=== PATIENT | female | born 1970 | race Caucasian/White ===

== ENCOUNTER 2017-06-12 16:10 | Emergency (ER) | payer SELFPAY ==
[~2017-06-12] VITALS: Ht 154.9 cm; Wt 63.5 kg
[~2017-06-12 16:10] MED LIST: AMOXICILLIN500 MG PO; CIPRO500 MG OR; DARVOCET N-100100 - OR; FLAGYL500 MG OR; LORTAB 10 OR; LORTAB 5 OR; NO HOME MEDS; PREVACID30 M2 OR; PROTONIX40 MG OR; REGLAN10 MG OR; TRAMADOL HCL50 MG OR
[2017-06-12] MEDS ORDERED: AMOXICILLIN500 MG PO (16:51)
[2017-06-12 16:55] VITALS: BP 123/82
== END 2017-06-12 16:55 | disposition home or self-care (01) | DRG 816 ==
LOC: ED 16:10
DX: I88.9 Nonspecific lymphadenitis, unspecified (principal); F17.210 Nicotine dependence, cigarettes, uncomplicated

== ENCOUNTER 2019-03-23 17:56 | Emergency (ER) | payer SELFPAY ==
[~2019-03-23] VITALS: Ht 154.9 cm; Wt 65.0 kg
[2019-03-23 19:00] VITALS: BP 138/86
== END 2019-03-23 19:00 | disposition home or self-care (01) | DRG 563 ==
LOC: ED 17:56
DX: S39.012A Strain of muscle, fascia and tendon of lower back, initial encounter (principal); Y04.2XXA Assault by strike against or bumped into by another person, initial encounter; Y92.009 Unspecified place in unspecified non-institutional (private) residence as the place of occurrence of the external cause

== ENCOUNTER 2019-09-07 03:11 | Emergency (ER) | payer OTHER ==
[~2019-09-07] VITALS: Ht 154.9 cm; Wt 60.0 kg
[2019-09-07] MEDS ORDERED: AMOXICILLIN500 MG PO (03:41)
[2019-09-07] MEDS ORDERED: ULTRAM50 M1 PO (03:41)
[2019-09-07 03:45] VITALS: BP 113/68
== END 2019-09-07 04:10 | disposition home or self-care (01) | DRG 159 ==
LOC: ED 03:11
DX: K04.7 Periapical abscess without sinus (principal); F17.210 Nicotine dependence, cigarettes, uncomplicated

== ENCOUNTER 2020-05-03 05:18 | Emergency (ER) | payer OTHER ==
[~2020-05-03] VITALS: Ht 154.9 cm; Wt 65.9 kg
[~2020-05-03 05:18] MED LIST changes: +ULTRAM50 M1 PO
[2020-05-03 05:59] LABS: HEMATOCRIT 44.7 % (37.0-47.0); HEMOGLOBIN 14.9 g/dl (12.0-16.0); IMMATURE GRANULOCYTES 0.3 % (0.0-5.0); MEAN CELL VOLUME 98.9 fL CALC (80.0-100.0); MEAN CORPUSCULAR HGB CONC 33.3 g/dL CAL (32.0-36.0); NEUT# 2.93 thou/uL (2.00-7.15); RED BLOOD COUNT 4.52 mill/uL (4.20-5.60); RED CELL DISTRI WIDTH 13.1 % (11.5-15.5)
[2020-05-03 06:13] LABS: ALBUMIN 4.5 g/dL (3.2-5.0); ALKALINE PHOSPHATASE 81 u/l (38-126); BUN 15 mg/dL (7-17); BUN/CREATININE RATIO 20 (12-20 (CALC)); CHLORIDE 107 mmol/l (95-108); CREATININE 0.8 mg/dL (0.5-1.0); GFR > 60 ML/MIN (>=60 (CALC)); GFR FOR AFR.AMER. > 60 ML/MIN (>=60 (CALC)); SGOT/AST 25 u/l (14-36); SODIUM 138 mmol/l (137-146); TOTAL PROTEIN 7.6 g/dL (6.3-8.2)
[2020-05-03 06:25] LABS: ANION GAP 9 (6-22 (CALC)); BILIRUBIN, TOTAL 0.7 mg/dL (0.0-1.4); CARBON DIOXIDE 26 mmol/l (22-30); MYOGLOBIN 30 ng/mL (0 - 62); POTASSIUM 4.1 mmol/l (3.5-5.1)
[2020-05-03 06:36] LABS: URINE BILIRUBIN - DIPSTICK NEGATIVE (NEGATIVE); URINE BLOOD DIPSTICK NEGATIVE (NEGATIVE); URINE COLOR YELLOW; URINE GLUCOSE - DIPSTICK NEGATIVE (NEGATIVE); URINE KETONE NEGATIVE (NEGATIVE); URINE LEUK ESTERASE NEGATIVE (NEGATIVE); URINE NITRITE - DIPSTICK NEGATIVE (Negative); URINE PROTEIN - DIPSTICK NEGATIVE (NEG-TRACE); URINE SPECIFIC GRAVITY >=1.030; URINE UROBILINOGEN - DIPSTICK 0.2 E.U./dL (0.2)
[2020-05-03] MEDS ORDERED: MECLIZINE25 MG PO (07:02)
[2020-05-03 07:27] VITALS: BP 106/78
== END 2020-05-03 07:29 | disposition home or self-care (01) | DRG 149 ==
LOC: ED 05:18
PROVIDERS: Family Medicine
DX: R42 Dizziness and giddiness (principal); F17.210 Nicotine dependence, cigarettes, uncomplicated
CPT/HCPCS: J2060